=== PATIENT | female | born 1990 | race Caucasian/White ===

== ENCOUNTER 2021-01-08 11:27 | Emergency (ER) | payer OTHER, BC ==
[~2021-01-08] VITALS: Ht 162.6 cm; Wt 47.6 kg
--- NOTE | 2021-01-08 11:45 | NUR ---
The patient is bibs for migraine headache x 8 days not relieved w/ otc tylenol and motrin. Rates headache 11/03. No N/V at this time. Will continue to monitor the patient.
[2021-01-08] MEDS ORDERED: METOCLOPRAMIDE HCL 10 MG/2 ML VIAL IV ONE (12:00)
[2021-01-08] MEDS ORDERED: IV NS 0.9% 1,000 ML BAG IV ONE (12:00)
[2021-01-08] MEDS ORDERED: KETOROLAC TROMETHAMINE INJ 30 MG/ML VIAL IV ONE (12:00)
[2021-01-08] MEDS ORDERED: KETOROLAC TROMETHAMINE INJ 30 MG/ML VIAL ONE (12:05)
[2021-01-08] MEDS ORDERED: METOCLOPRAMIDE HCL 10 MG/2 ML VIAL ONE (12:06)
[2021-01-08] MEDS ORDERED: Magnesium 1GM/D5W 100ML PREMIX 100 ML IV SCH (13:30)
[2021-01-08] MEDS ORDERED: Magnesium 1GM/D5W 100ML PREMIX 200 ML IV ONE (13:44)
[2021-01-08] MEDS ORDERED: Magnesium 1GM/D5W 100ML PREMIX PIGGYBACK IV ONE (14:00)
[2021-01-08] MEDS ORDERED: VALPROATE 500 MG in IV D5W 100 ML IV SCH (14:00)
--- NOTE | 2021-01-08 14:00 | NUR ---
PATIENT STS MIGRAINE FEELS BETTER.
[2021-01-08] MEDS ORDERED: SUMA50TA PO (14:19)
--- NOTE | 2021-01-08 16:01 | NUR ---
PATIENT A/OX4, AMBULATORY WITH STEADY GAIT. PT STS SHE FEELS BETTER.
[2021-01-08 16:10] VITALS: BP 132/81
--- NOTE | 2021-01-08 16:10 | NUR ---
Patient discharged to home in stable condition. Written and verbal after care instructions given. Patient verbalizes understanding of instruction.
== END 2021-01-08 16:10 | disposition home or self-care (01) ==
LOC: ER 11:35
DX: G43.909 Migraine, unspecified, not intractable, without status migrainosus (principal); J45.909 Unspecified asthma, uncomplicated; Z88.0 Allergy status to penicillin; Z88.8 Allergy status to other drugs, medicaments and biological substances
CPT/HCPCS: 96361; 96365; 96367; 96375; 99284; J1885; J2765; J3475; J3490; J7030 ×2; J7060

== ENCOUNTER 2022-01-20 18:12 | Emergency (ER) | payer BC, OTHER ==
[~2022-01-20] VITALS: Ht 162.6 cm; Wt 45.4 kg
[~2022-01-20 18:12] MED LIST: SUMA50TA PO
--- NOTE | 2022-01-20 18:30 | NUR ---
Received pt 31 yrs female came from home waking in c/o abdominale pain 11/03 came and go since last night awake and alert respiration spont and easy
[2022-01-20] MEDS ORDERED: KETOROLAC TROMETHAMINE INJ 30 MG/ML VIAL ONE (18:41)
--- NOTE | 2022-01-20 18:45 | NUR ---
INSERTED ANGO CATHETER G 20 on lt ARM blood drow and sent to lab UA SENT TO [facility]
--- NOTE | 2022-01-20 18:50 | NUR ---
TO CT SCAN OF ABDOMIN VIA WC
[2022-01-20] MEDS: IV NS 0.9% 1,000 ML BAG IV ONE (19:00)
[2022-01-20] MEDS: KETOROLAC TROMETHAMINE INJ 30 MG/ML VIAL IV ONE (19:01)
--- NOTE | 2022-01-20 19:13 | NUR ---
SERENA MASON RN
[2022-01-20 19:47] LABS: CALCIUM, SERUM 9.2 mg/dL (8.5-10.1); CREATININE 0.9 mg/dL (0.6-1.3); POTASSIUM 3.4 mmol/L (3.5-5.1)
[2022-01-20 19:54] LABS: ALBUMIN 4.3 g/dL (3.4-5.0); BILIRUBIN,DIRECT 0.2 mg/dL (0.0-0.2); BILIRUBIN,TOTAL 0.9 mg/dL (0.2-1.0); TOTAL PROTEIN, SERUM 8.2 g/dL (6.4-8.2)
[2022-01-20 20:06] LABS: BASOPHILS # (AUTO) 0.1 K/uL (0.0-0.2); BASOPHILS % (AUTO) 0.3 % (0.0-2.0); EOSINOPHILS % (AUTO) 1.1 % (0.0-6.0); HEMATOCRIT 41 % (33-45); HEMOGLOBIN 13.7 g/dL (11.5-14.8); LYMPHOCYTES # (AUTO) 0.8 K/uL (0.8-4.8); LYMPHOCYTES % (AUTO) 4.1 % (20.0-44.0); MEAN CORPUSCULAR HGB CONC 33 g/dl (31.0-36.0); MEAN CORPUSCULAR VOLUME 94 fL (82-100); MONOCYTES # (AUTO) 1.1 K/uL (0.1-1.30); MONOCYTES % (AUTO) 5.6 % (2.0-12.0); NEUTROPHILS # (AUTO) 17.5 K/uL (1.8-8.9); NEUTROPHILS % (AUTO) 88.9 % (43.0-81.0); PLATELET COUNT (AUTO) 530 K/uL (150-450); RED BLOOD CELL COUNT(AUTO) 4.37 MIL/uL (4.0-5.2); WHITE BLOOD COUNT (AUTO) 19.7 K/uL (4.3-11.0)
[2022-01-20 20:18] LABS: BILIRUBIN,URINE SMALL (NEGATIVE); COLOR,URINE YELLOW (YELLOW); LEUKOCYTE ESTERASE ,URINE NEGATIVE (NEGATIVE); NITRITE, URINE NEGATIVE (NEGATIVE); PH,URINE 6.5 (5.0-8.0); PROTEIN,URINE >=300 mg/dl (NEGATIVE); UGLUCOSE NEGATIVE (NEGATIVE)
[2022-01-20 20:32] LABS: BACTERIA,URINE None seen /HPF (None Seen); CALCIUM OXALATE CRYSTALS,UR Many /HPF (None Seen); MUCUS,URINE Few /LPF (None Seen); SQUAMOUS EPITHELIAL CELL,UR 0-2 /HPF (None Seen); WBC,URINE 0-2 /HPF (0-3)
[2022-01-20] MEDS ORDERED: ONDANSETRON HCL/PF 4 MG/2 ML VIAL ONE (20:51)
[2022-01-20] MEDS: ONDANSETRON HCL/PF - ER 4 MG/2 ML VIAL IV ONE (20:54)
[2022-01-20] MEDS ORDERED: GUAIFENESIN/CODEINE 10 ML UDC PO PRN (21:00)
--- NOTE | 2022-01-20 22:23 | NUR ---
IN & OUT CATH INSERTED WITH OUTPUT 75ML; DR. LAW VALENTIN AWARE. URINE COLOR YELLOW WITH SOME SEDIMENT
--- NOTE | 2022-01-20 22:26 | NUR ---
DR WARREN SPEAKING WITH DR BAUMANN
[2022-01-20] MEDS ORDERED: OXYB5TAB16 PO (22:34)
[2022-01-20] MEDS ORDERED: ONDA4TAB11 PO (22:34)
[2022-01-20] MEDS ORDERED: SULF1TAB48 PO (22:34)
[2022-01-20] MEDS ORDERED: IBUP-1957 PO (22:34)
[2022-01-20 23:08] VITALS: BP 128/76
--- NOTE | 2022-01-20 23:08 | NUR ---
Patient discharged to home in stable condition. rx Written and verbal after care instructions given. Patient verbalizes understanding of instruction. IV removed. Catheter intact and site benign. Pressure and 4x4 applied to site. No bleeding noted. pt ambulatory with a steady gait
== END 2022-01-20 23:09 | disposition home or self-care (01) ==
LOC: ER 18:22
DX: N23 Unspecified renal colic (principal); N32.81 Overactive bladder; J45.909 Unspecified asthma, uncomplicated; Z87.442 Personal history of urinary calculi; G43.909 Migraine, unspecified, not intractable, without status migrainosus; Z88.8 Allergy status to other drugs, medicaments and biological substances; Z79.899 Other long term (current) drug therapy
CPT/HCPCS: 99284; 74176; 96374; 96361; 96375; 85025; 80048; 80076; 81001; 36415; J1885; J2405; J7030